=== PATIENT | male | born 1950 | race Caucasian/White ===

== ENCOUNTER → 2019-07-16 06:29 | Outpatient (CLI) | payer MEDICARE, BC, SELFPAY ==
--- NOTE | 2019-07-16 06:39 | ECHOD_ITS ---
Reason For Study: SANCHEZ Procedure This was a 2D Doppler, Color Flow transthoracic echocardiogram. Exam performed in department. Left Ventricle Normal LV size. The estimated ejection fraction is 60 %. Normal diastology for age. No regional wall motion abnormalities noted. Right Ventricle Normal RV size. Normal systolic function. Atria Normal left atrium. Normal right atrium. No doppler evidence for ASD. Mitral Valve There is no mitral valve stenosis. No mitral valve insufficiency. Tricuspid Valve There is no tricuspid stenosis. Trivial tricuspid valve insufficiency. Pulmonary artery systolic pressure is 20 mmHg. Aortic Valve Aortic sclerosis, no stenosis. There is no aortic stenosis. No aortic valve insufficiency. Pulmonic Valve There is no pulmonic valvular stenosis. No pulmonic valve insufficiency. Great Vessels Normal aortic root. Pericardium/Pleural No pericardial effusion. MMode/2D Measurements & Calculations LVIDd: 4.3 cm IVSd: 1.0 cm LVOT diam: 2.0 cm LVIDs: 2.5 cm LVPWd: 1.0 cm LVOT area: 3.1 cm2 RVDd: 3.4 cm FS: 41.5 % Ao root diam: 3.2 cm LAV(MOD-bp): 43.8 ml LA A4 area: 16.7 cm2 LAV(MOD-bp) Indexed: 23.6 ml/m2 LAV(MOD-sp2): 40.5 ml LAV(MOD-sp4): 43.2 ml LA dimension(2D): 3.6 cm RA A4 area: 14.0 cm2 Doppler Measurements & Calculations MV E max gustavo: 61.6 cm/sec Lat Peak E' Gustavo: 5.7 cm/sec Med Peak E' Gustavo: 6.3 cm/sec MV A max gustavo: 75.1 cm/sec E/E' lat: 10.8 E/E' med: 9.7 MV E/A: 0.82 Ao V2 max: 133.0 cm/sec LV V1 max: 88.0 cm/sec SV(LVOT): 41.7 ml Ao max P.1 mmHg LV V1 max P.1 mmHg Ao V2 mean: 81.5 cm/sec LV V1 mean P.2 mmHg Ao mean P.1 mmHg LV V1 mean: 50.8 cm/sec Ao V2 VTI: 21.2 cm LV V1 VTI: 13.6 cm LYDIA(I,D): 2.0 cm2 LYDIA(V,D): 2.0 cm2 PA V2 max: 138.9 cm/sec TR max gustavo: 199.2 cm/sec TR max P.9 mmHg Interpretation Summary The estimated ejection fraction is 60 %. Normal diastology for age. Trivial tricuspid valve insufficiency. Pulmonary artery systolic pressure is 20 mmHg. Ordering Physician: Toribio Kamara Referring Physician: Toribio Kamara Performed By: Dariana Quinonez RDCS
--- NOTE | 2019-07-16 06:55 | RAD_ITS ---
STUDY: X-RAY CHEST REASON FOR EXAM: Male, 69 years old. Cough TECHNIQUE: PA and lateral views of the chest COMPARISON: None. FINDINGS: The lungs are clear. There are no pleural effusions. There is no pneumothorax. The heart is normal in size. The visualized osseous structures are within normal limits. RAD/Chest PA and Lateral IMPRESSION: No acute thoracic pathology. Electronically Signed: Kilo Tobias, at 17:45 EST Tel , Service support ,
--- NOTE | 2019-07-16 11:17 | STRESSREP ---
Stress Test Report Date: 07/16/2019 Procedure: Exercise tolerance test/imaging study Indications: Dyspnea on exertion Consent: Per the patient Procedure: The patient exercised on a Jonas protocol for 9 minutes achieving a peak heart rate of 164 bpm (110 % predicted maximal heart rate) with a peak blood pressure 178/88 mmHg and a peak MET capacity of 10.1 METs. The baseline ECG demonstrated normal sinus rhythm. The peak exercise ECG demonstrated sinus tachycardia with about [address] depressions in the inferior and lateral leads. EKG during recovery revealed return of ST segments to baseline [There were no cardiac dysrhythmias pretest, during exercise, or recovery]. The functional capacity was considered above average for age. There was [no complaint of chest discomfort during exercise or recovery]. The examination was discontinued secondary to achieving target heart rate, leg discomfort. Impression: 1. Technically adequate (percent predicted maximal heart rate greater than 85%) exercise tolerance test 2. Stress test is negative for exercise-induced EKG changes of ischemia 3. The test test is negative for exercise-induced chest pain 4. Functional capacity is low average for age 5. Nuclear images pending Myocardial perfusion imaging study: Technique: The patient was injected with [11.1] mCi of technetium 99m Cardiolite and subsequently rest SPECT Cardiolite nuclear imaging was obtained in the horizontal long, vertical long, and short axis views. The patient exercised on a Jonas protocol. Please see above for details. The patient was injected with 33.6 mCi of technetium 99m Cardiolite and subsequently stress SPECT Cardiolite nuclear imaging was obtained in the horizontal long, vertical long, and short axis views. A gated Cardiolite study at peak stress was obtained. Interpretation: Rest and stress SPECT Cardiolite nuclear imaging status post realignment, normalization, and attenuation correction, demonstrates overall normal myocardial radioisotope uptake. The gated Cardiolite study demonstrates no significant regional wall motion abnormalities. The reported LVEF is 63 %. Impression: 1. There is no evidence of significant ischemia or infarction. 2. The gated Cardiolite study reports an LVEF of 63 %. This note was generated with [email or web address] software. It may contain incorrect words, spelling, and punctuation that were not noted in checking the note before signing.
== END ==
PROVIDERS: Family Provider Internal Medicine; PCP Internal Medicine; Referring Provider Internal Medicine; Visit Provider Internal Medicine
DX: R06.09 Other forms of dyspnea (principal); I10 Essential (primary) hypertension; R05 Cough
CPT/HCPCS: 71046; 78452; 93017; 93306; A9500; A4216